=== PATIENT | female | born 1960 | race Caucasian/White ===

== ENCOUNTER 2017-01-30 12:37 | Emergency (ER) | payer OTHER ==
[~2017-01-30] VITALS: Ht 165.1 cm; Wt 60.8 kg
[~2017-01-30 12:37] MED LIST: ALAVERT10 M1 PO; AMBIEN10 M1 PO; BIO-CEF500 MG PO; BISOPROLOL5 MG PO; FLAGYL500 MG PO; FLEXERIL5 MG PO; GEODON80 MG PO; HYDROCODONE BIT1 T11 PO; IBUPROFEN600 MG PO; MOTRIN800 MG PO; NATURE'S BLEND F1 MG PO; PERCOCET 325 MG1 TA7 PO; PHENERGAN25 MG R; PREDNISONE10 MG PO; PRISTIQ50 MG PO; SIMVASTATIN20 MG PO; SIMVASTATIN5 MG PO; SYMBICORT1 AE1 INH; TORADOL10 MG PO; ULTRAM50 MG PO; VALIUM10 MG PO; VICODIN 5/500 505 MG PO; VIIBRYD40 PO; VITAMIN D31000 IU PO; VITAMIN D3400 IU PO
[2017-01-30] MEDS ORDERED: RISPERDAL3 M1 PO (12:42)
[2017-01-30 13:33] LABS: BASO # 0.1 10*3/uL (0.0-0.1); BASO % 0.8 % (0.0-1.0); EOS # 0.2 10*3/uL (0.0-0.4); EOS % 1.3 % (1.0-4.0); HEMATOCRIT 53.1 % (37.0-47.0); HEMOGLOBIN 18.4 g/dl (12.0-16.0); LYMPH % 30.7 % (27.0-41.0); MEAN CELL VOLUME 89.5 fl (81.0-99.0); MEAN CORPUSCULAR HGB CONC 34.7 g/dl (33.0-37.0); MEAN PLATELET VOLUME 11.3 fl (9.6-12.3); MONO # 0.8 10*3/uL (0.1-1.0); NEUT # 7.9 10*3/uL (2.3-7.9); NEUT % 60.9 % (47.0-73.0); PLATELET COUNT AUTOMATED 326 10*3/uL (130-400); RED BLOOD COUNT 5.93 10*6/uL (4.10-5.10); RED CELL DISTRI WIDTH 12.1 % (0-14.5)
[2017-01-30 13:50] LABS: ALBUMIN 3.8 gm/dl (3.1-4.5); ALKALINE PHOSPHATASE 107 U/L (45-117); BILIRUBIN, TOTAL 1.2 mg/dl (0.2-1.0); BUN 10 mg/dl (7-24); CARBON DIOXIDE 20 mmol/L (21-32); CHLORIDE 110 mmol/L (98-107); EST GLOM FILT AFRICAN AMERICAN > 60 ml/min; GLUCOSE 107 mg/dL (65-99); POTASSIUM 3.9 mmol/L (3.5-5.1); SGOT/AST 14 IU/L (3-35); SGPT/ALT 17 U/L (12-78); SODIUM 139 mmol/L (136-145); TOTAL PROTEIN 8.1 gm/dL (6.4-8.2)
[2017-01-30 13:52] LABS: C-REACTIVE PROTEIN < 0.29 MG/DL (0-0.3)
[2017-01-30 14:04] LABS: BILIRUBIN 1+ (NEGATIVE); BLOOD 3+ (NEGATIVE); CLARITY SL CLOUDY (CLEAR); COLOR YELLOW (YELLOW); GLUCOSE NEGATIVE (NEGATIVE); KETONE NEGATIVE (NEGATIVE); LEUKO ESTERASE 2+ (NEGATIVE); NITRITE NEGATIVE (NEGATIVE); PROTEIN 1+ (NEGATIVE); SPECIFIC GRAVITY 1.015 (1.005-1.030); UROBILINOGEN 0.2 E.U./dl (0.2-1.0)
[2017-01-30 14:22] LABS: BACTERIA TRACE; MUCOUS TRACE; RBC 31-40 rbc/hpf (0-2); URINE REFLEX COMMENT YES (NO); WBC 21-30 wbc/hpf (0-5)
[2017-01-30 18:05] VITALS: BP 150/80
== END 2017-01-30 18:04 | disposition short-term general hospital (02) ==
LOC: ED 12:37
PROVIDERS: Physician Assistant
DX: A41.9 Sepsis, unspecified organism (principal); N13.2 Hydronephrosis with renal and ureteral calculous obstruction; F17.200 Nicotine dependence, unspecified, uncomplicated; Z90.49 Acquired absence of other specified parts of digestive tract; Z98.51 Tubal ligation status; Z90.710 Acquired absence of both cervix and uterus; Z98.42 Cataract extraction status, left eye; Z79.899 Other long term (current) drug therapy; Z88.2 Allergy status to sulfonamides; Z88.5 Allergy status to narcotic agent

== ENCOUNTER → 2017-07-15 | Outpatient (CLI) | payer OTHER ==
[~2017-07-15] MED LIST changes: +RISPERDAL3 M1 PO
[2017-07-15 11:49] LABS: ALBUMIN 3.4 gm/dl (3.1-4.5); BUN 8 mg/dl (7-24); CHLORIDE 105 mmol/L (98-107); POTASSIUM 4.3 mmol/L (3.5-5.1); SODIUM 142 mmol/L (136-145)
[2017-07-15 12:44] LABS: ALKALINE PHOSPHATASE 102 U/L (45-117); BILIRUBIN, DIRECT < 0.1 mg/dL (0.0-0.2); CREATININE 1.31 mg/dL (0.55-1.02); FREE T4 0.98 ng/dl (0.76-1.46); IRON 31 ug/dL (50-170); SGOT/AST 15 IU/L (3-35); SGPT/ALT 20 U/L (12-78); TOTAL IRON BINDING CAPACITY 320 ug/dl (250-450); TOTAL PROTEIN 8.2 gm/dL (6.4-8.2); URIC ACID 5.5 mg/dL (2.6-6.0)
[2017-07-15 13:07] LABS: VITAMIN D, 25-HYDROXY 31.1 ng/mL (30-100)
[2017-07-15 13:08] LABS: PTH INTACT 32.4 pg/mL (14.0-72.0)
== END | disposition home or self-care (01) ==
LOC: LAB 10:06
PROVIDERS: Internal Medicine
DX: N20.0 Calculus of kidney (principal); E55.9 Vitamin D deficiency, unspecified; R63.4 Abnormal weight loss; R79.89 Other specified abnormal findings of blood chemistry

== ENCOUNTER → 2017-07-24 | Outpatient (CLI) | payer OTHER | END | disposition home or self-care (01) | LOC: US 03:07 | DX: E21.3 Hyperparathyroidism, unspecified (principal); R63.4 Abnormal weight loss ==

== ENCOUNTER → 2017-10-23 | Day surgery (SDC) | payer OTHER ==
[~2017-10-23] VITALS: Ht 165.1 cm; Wt 59.0 kg
[~2017-10-23] MED LIST changes: +CLONAZEPAM0.5 M2 PO; +HYDROCHLOROTH12.5 M2 PO; +Magnesium Oxid400 MG PO; +POTASSIUM CITRA5 ME1 PO; +PROBIOTIC1 EAC1 PO; +RISPERIDONE1 MG PO
--- NOTE | ~2017-10-23 | O ---
[place], [place] OPERATIVE NOTE NAME: SHUN OLIVARES UNIT #: [id number] ROOM: DOCTOR: ÁLVARO ORTIZ MD BIRTHDATE: [birth year] DOS: 10/23/2017 GASTROENDOSCOPIC REPORT HISTORY OF PRESENT ILLNESS: A 57-year-old patient who has presented with chief complaint of dyspepsia, undergoing investigation. She is fearful of having a gastric carcinoma due to the fact that multiple family members with throat and stomach carcinoma including father and uncle. She has had normal colonoscopy in 2013. PAST SURGICAL HISTORY: Lithotripsy, left knee and podiatric surgery. PAST MEDICAL HISTORY: Unremarkable. ALLERGIES: CODEINE AND SULFA. SOCIAL HISTORY: One pack, smoker and nonalcohol consumer. PROCEDURE: Today's procedure part of investigation is panendoscopy plus biopsy. PREMEDICATION: Versed and Diprivan. SCOPE: Olympus forward-viewing gastroscope Q10 video. REPORT: After putting the patient in left lateral position and application of lubricant to the scope, the scope was introduced. Thereafter, under direct visualization, I advanced through the length of esophagus without difficulty. Evidence of distal esophagitis, gastritis, was noticed a small hiatal hernia approximately 1.5 cm was noticed. Gastric pouch was entered. Gastritis noticed and duodenitis as well was identified. Air was suctioned out. Antral biopsy obtained. GI reflexion of the scope confirms small hiatal hernia. The patient tolerated procedure well. IMPRESSION: Distal esophagitis, small hiatal hernia, gastritis, and duodenitis. PLAN AND DISCUSSION: The patient advised to abstain from smoking to avoid ibuprofen as she is using on the other hand, omeprazole 20 mg 1 every day is prescribed, antireflux measures. Follow up routinely with you in office, p.r.n. visit with us in GI Clinic. I thank you very much again Ms. Yeni Biswas, for your kind referral. [place], [place] OPERATIVE NOTE NAME: SHUN OLIVARES Guevara UNIT #: [id number] ROOM: DOCTOR: ÁLVARO ORTIZ MD BIRTHDATE: [birth year] ÁLVARO ORTIZ MD CM:OPRECORD:OPERATIVE NOTE [id number] YENI ORTIZ MD 10/23/17 1328 interface
[2017-10-23 11:25] VITALS: BP 124/70
[2017-10-23 12:31] VITALS: BP 116/58
[2017-10-23 12:46] VITALS: BP 121/60
[2017-10-23 13:01] VITALS: BP 140/59
== END ==
LOC: SDC 10-21 08:00
DX: K29.90 Gastroduodenitis, unspecified, without bleeding (principal); Z98.890 Other specified postprocedural states; Z88.2 Allergy status to sulfonamides; Z88.5 Allergy status to narcotic agent; F17.210 Nicotine dependence, cigarettes, uncomplicated; K20.9 Esophagitis, unspecified; K44.9 Diaphragmatic hernia without obstruction or gangrene; Z80.0 Family history of malignant neoplasm of digestive organs; J44.9 Chronic obstructive pulmonary disease, unspecified; F41.9 Anxiety disorder, unspecified; F32.9 Major depressive disorder, single episode, unspecified; Z98.51 Tubal ligation status; Z90.49 Acquired absence of other specified parts of digestive tract; Z79.899 Other long term (current) drug therapy; Z87.442 Personal history of urinary calculi

== ENCOUNTER → 2017-11-19 | Outpatient (CLI) | payer OTHER ==
[2017-11-19 10:47] LABS: BILIRUBIN NEGATIVE (NEGATIVE); BLOOD TRACE-INTACT (NEGATIVE); CLARITY SL CLOUDY (CLEAR); COLOR YELLOW (YELLOW); GLUCOSE NEGATIVE (NEGATIVE); KETONE NEGATIVE (NEGATIVE); LEUKO ESTERASE 1+ (NEGATIVE); NITRITE NEGATIVE (NEGATIVE); PH 5.5 (5.0-9.0); UROBILINOGEN 0.2 E.U./dl (0.2-1.0)
[2017-11-19 11:03] LABS: WBC 21-30 wbc/hpf (0-5)
[2017-11-19 11:04] LABS: BACTERIA TRACE; YEAST TRACE
[2017-11-19 11:14] LABS: ALBUMIN 3.7 gm/dl (3.1-4.5); CREATININE 1.24 mg/dL (0.55-1.02); POTASSIUM 3.4 mmol/L (3.5-5.1); URIC ACID 7.2 mg/dL (2.6-6.0)
[2017-11-19 12:25] LABS: VITAMIN D, 25-HYDROXY 21.3 ng/mL (30-100)
== END | disposition home or self-care (01) ==
LOC: LAB 10:02
PROVIDERS: Internal Medicine
DX: N20.0 Calculus of kidney (principal); N18.9 Chronic kidney disease, unspecified; E55.9 Vitamin D deficiency, unspecified; E21.3 Hyperparathyroidism, unspecified

== ENCOUNTER → 2018-01-27 | Outpatient (CLI) | payer OTHER ==
[2018-01-27 12:00] LABS: ALBUMIN 3.9 gm/dl (3.1-4.5); CREATININE 1.38 mg/dL (0.55-1.02); POTASSIUM 3.4 mmol/L (3.5-5.1); URIC ACID 6.7 mg/dL (2.6-6.0)
[2018-01-27 13:21] LABS: PTH INTACT 73.8 pg/mL (14.0-72.0); VITAMIN D, 25-HYDROXY 24.4 ng/mL (30-100)
== END | disposition home or self-care (01) ==
LOC: LAB 10:23
PROVIDERS: Internal Medicine
DX: E83.52 Hypercalcemia (principal); E21.3 Hyperparathyroidism, unspecified; E55.9 Vitamin D deficiency, unspecified; N20.0 Calculus of kidney; E61.2 Magnesium deficiency

== ENCOUNTER → 2018-10-03 | Outpatient (CLI) | payer OTHER ==
[2018-10-03 14:20] LABS: ALBUMIN 3.6 gm/dl (3.1-4.5); CREATININE 1.28 mg/dL (0.55-1.02); POTASSIUM 4.3 mmol/L (3.5-5.1); URIC ACID 5.4 mg/dL (2.6-6.0)
[2018-10-03 14:39] LABS: PTH INTACT 107.9 pg/mL (18.5-88.0); VITAMIN D, 25-HYDROXY 40.6 ng/mL (30-100)
== END | disposition home or self-care (01) ==
LOC: LAB 12:58
PROVIDERS: Internal Medicine
DX: E21.3 Hyperparathyroidism, unspecified (principal); E61.2 Magnesium deficiency; E55.9 Vitamin D deficiency, unspecified; N20.0 Calculus of kidney; R79.89 Other specified abnormal findings of blood chemistry

== ENCOUNTER → 2018-10-05 | Outpatient (CLI) | payer OTHER ==
[2018-10-10 15:07] LABS: BUSHITE 1.46 ratio (0.00-3.00); CALCIUM OXALATE 2.13 ratio (0.00-6.00); CALCIUM, URINE 5.4 mg/dL (Not Estab.); CALCIUM, URINE 67.5 mg/24 hr (100.0-300.0); CITRIC ACID (CITRATE) 305 mg/24 hr (320-1240); CREATININE, URINE 937.5 mg/24 hr (800.0-1800.0); MAGNESIUM, URINE 9.2 mg/dL (Not Estab.); MONOSODIUM URATE 0.71 ratio (0.00-4.00); OSMOLALITY, URINE 300 (300-900); SODIUM, URINE 23 mmol/L (Not Estab.); SODIUM, URINE 29 (39-258); STRUVITE 0.17 ratio (0.00-1.00); URIC ACID 0.04 ratio (0.00-1.20); pH 24 HR URINE 7.5 (.)
== END | disposition home or self-care (01) ==
LOC: LAB 10:17
PROVIDERS: Internal Medicine
DX: N20.0 Calculus of kidney (principal); E21.3 Hyperparathyroidism, unspecified; E55.9 Vitamin D deficiency, unspecified; R79.89 Other specified abnormal findings of blood chemistry

== ENCOUNTER → 2019-02-09 | Outpatient (CLI) | payer OTHER ==
[2019-02-09 11:51] LABS: ALBUMIN 3.7 gm/dl (3.1-4.5); CREATININE 1.29 mg/dL (0.55-1.02); POTASSIUM 4.3 mmol/L (3.5-5.1); URIC ACID 5.8 mg/dL (2.6-6.0)
[2019-02-09 12:04] LABS: PTH INTACT 135.4 pg/mL (18.5-88.0); VITAMIN D, 25-HYDROXY 47.8 ng/mL (30-100)
== END | disposition home or self-care (01) ==
LOC: LAB 10:18
PROVIDERS: Internal Medicine
DX: N20.0 Calculus of kidney (principal); R79.89 Other specified abnormal findings of blood chemistry; E21.3 Hyperparathyroidism, unspecified; E55.9 Vitamin D deficiency, unspecified

== ENCOUNTER → 2019-03-17 | Outpatient (CLI) | payer OTHER ==
[2019-03-17 11:46] LABS: CREATININE 1.28 mg/dL (0.55-1.02); POTASSIUM 4.4 mmol/L (3.5-5.1)
== END | disposition home or self-care (01) ==
LOC: LAB 10:57
PROVIDERS: Internal Medicine
DX: E83.52 Hypercalcemia (principal)

== ENCOUNTER → 2019-07-24 | Outpatient (CLI) | payer OTHER ==
[2019-07-24 10:22] LABS: ALBUMIN 3.7 gm/dl (3.1-4.5); CREATININE 1.37 mg/dL (0.55-1.02); POTASSIUM 4.3 mmol/L (3.5-5.1)
[2019-07-24 11:15] LABS: VITAMIN D, 25-HYDROXY 24.6 ng/mL (30-100)
[2019-07-24 11:16] LABS: PTH INTACT 99.6 pg/mL (18.5-88.0)
== END | disposition home or self-care (01) ==
LOC: LAB 09:36
PROVIDERS: Internal Medicine
DX: N20.0 Calculus of kidney (principal); E21.3 Hyperparathyroidism, unspecified; E61.2 Magnesium deficiency; E55.9 Vitamin D deficiency, unspecified

== ENCOUNTER → 2019-08-07 | Outpatient (CLI) | payer OTHER | END | disposition home or self-care (01) | LOC: LAB 09:41 | DX: E83.52 Hypercalcemia (principal) ==

== ENCOUNTER 2019-10-22 15:40 | Inpatient (IN) | payer OTHER ==
[~2019-10-22] VITALS: Ht 165.1 cm; Wt 64.5 kg
[2019-10-22 15:43] VITALS: BP 176/72
[2019-10-22 16:58] VITALS: BP 144/66
[2019-10-22 18:04] VITALS: BP 130/58
--- NOTE | 2019-10-22 18:04 | NUR ---
FEELING A LITTLE BETTER AFTER GLUCAGON.
[2019-10-22 22:30] VITALS: BP 146/63
--- NOTE | 2019-10-22 22:30 | NUR ---
Time: 2229 A 59 year old FEMALE admitted to under services of DR. KAT MOISE,[facility]. Pt. arrived via bed from ER. Chief complaint: FOREIGN BODY IN THROAT. ROCAEL AMOS
--- NOTE | 2019-10-22 22:30 | NUR ---
PER ER. NOTIFIED PER ER AND PATIENT. EGD IN AM.
[2019-10-22] MEDS ORDERED: DICYCLOMINE HCL10 MG PO (22:46)
[2019-10-22] MEDS ORDERED: PANTOPRAZOLE SO40 MG PO (22:47)
[2019-10-22] MEDS ORDERED: ZIPRASIDONE HCL80 M1 PO (22:48)
[2019-10-22 22:50] VITALS: BP 146/63
--- NOTE | 2019-10-22 22:50 | NUR ---
INFORMED THAT HOME MEDS ARE VERIFIED. PATIENT IS HAS NOT HAD NIGHT TIME MEDS, AND IS REQUESTING NIGHT TIME MEDS D/T PSYCH HX. STATED OK SHEE WILL LOOK.
--- NOTE | 2019-10-22 22:55 | NUR ---
STATED SHE WILL NOT START MEDICATIONS D/T THE POSSIBLE FOREIGN BODY IN THROAT.
--- NOTE | 2019-10-23 03:04 | NUR ---
INFORMED THAT NO ORDERS HAVE BEEN PLACED FOR PATIENT, NO LABS/ADMIT TO SERVICES OR CODE STATUS. INFORMED THAT PATIENT IS GOING TO SURGERY AND NO LAB WORK HAS BEEN DONE. STATED THAT PATIENT WAS NPO SO SHE DIDN'T NEED ANYTHING.
[2019-10-23 06:49] LABS: BASO # 0.1 10*3/uL (0.0-0.1); EOS # 0.2 10*3/uL (0.0-0.4); EOS % 1.7 % (1.0-4.0); HEMATOCRIT 45.1 % (37.0-47.0); HEMOGLOBIN 14.6 g/dl (12.0-16.0); MEAN CELL VOLUME 95.6 fl (81.0-99.0); MEAN CORPUSCULAR HGB 30.9 pg (27.0-31.0); MEAN CORPUSCULAR HGB CONC 32.4 g/dl (33.0-37.0); MEAN PLATELET VOLUME 10.8 fl (9.6-12.3); MONO # 0.6 10*3/uL (0.1-1.0); MONO % 7.2 % (3.0-9.0); NEUT # 5.9 10*3/uL (2.3-7.9); NEUT % 66.9 % (47.0-73.0); PLATELET COUNT AUTOMATED 257 10*3/uL (130-400); RED BLOOD COUNT 4.72 10*6/uL (4.10-5.10); RED CELL DISTRI WIDTH 12.4 % (0-14.5); WHITE BLOOD COUNT 8.8 10*3/uL (4.8-10.8)
[2019-10-23 07:05] LABS: ALBUMIN 3.7 gm/dl (3.1-4.5); CREATININE 1.4 mg/dL (0.55-1.02); PHOSPHOROUS 3.1 mg/dL (2.5-4.9); POTASSIUM 4.1 mmol/L (3.5-5.1); TOTAL PROTEIN 7.5 gm/dL (6.4-8.2)
[2019-10-23 08:00] VITALS: BP 136/63
--- NOTE | 2019-10-23 11:00 | NUR ---
Sales Rep in to talk to patient. Patient states lives at home with her and son. There are 18 steps in the home. Physician: Dr. Givens [facility] Home health services: none Patient's level of ADLs: INDEPENDENT Patient has working utilities: yes DME: none Follow-up physician's appointment after d/c: she prefers to make her own follow up appt after discharge Does patient want to access PORTAL?: no Discharge plan discussed with patient and family who are at her bedside. She lives at home with her and son. She is independent in her ADLs and ambulation. Discussed home health care services and she denies any home needs at this time. When medically stable she will be discharged to home. Family very upset regarding surgery not scheduled until 1700. Dr. Rg notified. ILIANA NICOLAS
--- NOTE | 2019-10-23 12:04 | NUR ---
Spoke to Dr. Rg regarding patient's anxiety due to EGD and feeling as though she is having difficulty breathing. New orders received.
[2019-10-23 12:20] VITALS: BP 151/72
[2019-10-23 13:12] VITALS: BP 118/60
[2019-10-23 13:27] VITALS: BP 139/57
[2019-10-23 13:42] VITALS: BP 133/64
[2019-10-23 16:00] VITALS: BP 123/52
--- NOTE | 2019-10-23 17:02 | NUR ---
Discharge instructions reviewed with patient/family. Patient receptive and verbalizes understanding. Follow-up care arranged. Written instructions given to patient/family. MICHAEL ZALDIVAR
== END 2019-10-23 17:03 | disposition home or self-care (01) | DRG 254 ==
LOC: ED 15:40 → EDHOLD 17:42 → 4E 17:42
PROVIDERS: ADMIT Internal Medicine
PROC: 0DB68ZX Excision of Stomach, Via Natural or Artificial Opening Endoscopic, Diagnostic (ICD-10-PCS; principal; 2019-10-23)
DX: T18.108A Unspecified foreign body in esophagus causing other injury, initial encounter (principal); F41.9 Anxiety disorder, unspecified; K21.0 Gastro-esophageal reflux disease with esophagitis; N20.0 Calculus of kidney; F32.9 Major depressive disorder, single episode, unspecified; X58.XXXA Exposure to other specified factors, initial encounter; Z88.5 Allergy status to narcotic agent; Z88.2 Allergy status to sulfonamides; N17.9 Acute kidney failure, unspecified

== ENCOUNTER → 2019-11-09 | Outpatient (CLI) | payer OTHER ==
[~2019-11-09] MED LIST changes: +DICYCLOMINE HCL10 MG PO; +PANTOPRAZOLE SO40 MG PO; +ZIPRASIDONE HCL80 M1 PO
[2019-11-09 11:18] LABS: ALBUMIN 3.9 gm/dl (3.1-4.5); CREATININE 1.36 mg/dL (0.55-1.02); POTASSIUM 4.6 mmol/L (3.5-5.1)
[2019-11-09 15:20] LABS: PTH INTACT 153.3 pg/mL (18.5-88.0); VITAMIN D, 25-HYDROXY 33.3 ng/mL (30-100)
== END | disposition home or self-care (01) ==
LOC: LAB 10:26
PROVIDERS: Internal Medicine
DX: E21.3 Hyperparathyroidism, unspecified (principal); E61.2 Magnesium deficiency; E55.9 Vitamin D deficiency, unspecified

== ENCOUNTER → 2019-11-11 | Outpatient (CLI) | payer OTHER | LOC: LAB 07:48 | DX: E83.52 Hypercalcemia (principal) ==

== ENCOUNTER → 2020-03-07 | Outpatient (CLI) | payer OTHER ==
[~2020-03-07] MED LIST changes: +NORCO 5-325 TA1 EACH PO
== END | disposition home or self-care (01) ==
LOC: RAD 11:19 → LAB 11:19
DX: K52.9 Noninfective gastroenteritis and colitis, unspecified (principal); N20.0 Calculus of kidney; Z90.49 Acquired absence of other specified parts of digestive tract

== ENCOUNTER → 2020-03-08 | Outpatient (CLI) | payer OTHER ==
[2020-03-11 15:03] LABS: DEOXYCHOLIC ACIDS 0.5 umol/L (.); URSODEOXYCHOLIC ACIDS 0.5 umol/L (.)
== END | disposition home or self-care (01) ==
LOC: LAB 09:36
PROVIDERS: Nurse Practitioner Family
DX: K52.9 Noninfective gastroenteritis and colitis, unspecified (principal)

== ENCOUNTER → 2020-03-09 | Outpatient (CLI) | payer OTHER ==
[2020-03-11 18:03] LABS: FATS, NEUTRAL Normal (.); FATS, TOTAL Normal (.)
== END | disposition home or self-care (01) ==
LOC: LAB 08:13
PROVIDERS: Nurse Practitioner Family
DX: K52.9 Noninfective gastroenteritis and colitis, unspecified (principal)

== ENCOUNTER 2020-03-29 15:17 | Emergency (ER) | payer OTHER ==
[~2020-03-29] VITALS: Ht 165.1 cm; Wt 63.5 kg
[~2020-03-29 15:17] MED LIST changes: -NORCO 5-325 TA1 EACH PO
[2020-03-29 15:29] VITALS: BP 138/60
[2020-03-29] MEDS ORDERED: NORCO 5-325 TA1 EACH PO (18:43)
== END 2020-03-29 19:15 | disposition home or self-care (01) ==
LOC: ED 15:17
DX: S82.402A Unspecified fracture of shaft of left fibula, initial encounter for closed fracture (principal); F41.9 Anxiety disorder, unspecified; F32.9 Major depressive disorder, single episode, unspecified; J44.9 Chronic obstructive pulmonary disease, unspecified; Z88.2 Allergy status to sulfonamides; Z88.5 Allergy status to narcotic agent; Z79.899 Other long term (current) drug therapy; X58.XXXA Exposure to other specified factors, initial encounter; Y93.89 Activity, other specified; Y92.89 Other specified places as the place of occurrence of the external cause; Y99.8 Other external cause status; Z87.891 Personal history of nicotine dependence

== ENCOUNTER → 2020-06-07 | Outpatient (CLI) | payer OTHER ==
[~2020-06-07] MED LIST changes: +NORCO 5-325 TA1 EACH PO
[2020-06-07 12:33] LABS: ALBUMIN 3.3 gm/dl (3.1-4.5); CREATININE 1.27 mg/dL (0.55-1.02); POTASSIUM 4.1 mmol/L (3.5-5.1)
[2020-06-07 13:10] LABS: PTH INTACT 83.8 pg/mL (18.5-88.0); VITAMIN D, 25-HYDROXY 53.3 ng/mL (30-100)
== END | disposition home or self-care (01) ==
LOC: LAB 10:55
PROVIDERS: ATTEND Internal Medicine
DX: E21.3 Hyperparathyroidism, unspecified (principal); E55.9 Vitamin D deficiency, unspecified

== ENCOUNTER → 2020-06-09 | Outpatient (CLI) | payer OTHER | END | disposition home or self-care (01) | LOC: LAB 09:33 | PROVIDERS: ATTEND Internal Medicine | DX: E55.9 Vitamin D deficiency, unspecified (principal); E61.2 Magnesium deficiency; E21.3 Hyperparathyroidism, unspecified ==

== ENCOUNTER 2020-07-27 14:37 | Observation (INO) | payer OTHER ==
[~2020-07-27] VITALS: Ht 165.1 cm; Wt 58.7 kg
[2020-07-27 14:41] VITALS: BP 140/69
[2020-07-27 15:10] LABS: BASO # 0.1 10*3/uL (0.0-0.1); BASO % 1.1 % (0.0-1.0); EOS # 0.2 10*3/uL (0.0-0.4); EOS % 2.5 % (1.0-4.0); HEMATOCRIT 46.8 % (37.0-47.0); LYMPH # 3.3 10*3/uL (1.3-4.4); MEAN CELL VOLUME 92.9 fl (81.0-99.0); MEAN CORPUSCULAR HGB 30.6 pg (27.0-31.0); MEAN CORPUSCULAR HGB CONC 32.9 g/dl (33.0-37.0); MEAN PLATELET VOLUME 10.6 fl (9.6-12.3); MONO # 0.4 10*3/uL (0.1-1.0); MONO % 4.5 % (3.0-9.0); NEUT # 5.3 10*3/uL (2.3-7.9); NEUT % 56.6 % (47.0-73.0); PLATELET COUNT AUTOMATED 330 10*3/uL (130-400); RED BLOOD COUNT 5.04 10*6/uL (4.10-5.10); RED CELL DISTRI WIDTH 12.2 % (0-14.5); WHITE BLOOD COUNT 9.3 10*3/uL (4.8-10.8)
[2020-07-27 15:24] LABS: ACT PARTIAL THROMBO TIME 29.7 SECONDS (20.0-32.1); INTERNATIONAL NORM RATIO 0.9 (2.0-3.5)
[2020-07-27 15:27] LABS: ALBUMIN 3.8 gm/dl (3.1-4.5); ALKALINE PHOSPHATASE 82 U/L (45-117); BUN 5 mg/dl (7-24); CHLORIDE 103 mmol/L (98-107); CREATININE 1.25 mg/dL (0.55-1.02); SGOT/AST 11 IU/L (3-35); SGPT/ALT 13 U/L (12-78); SODIUM 137 mmol/L (136-145); TOTAL PROTEIN 7.6 gm/dL (6.4-8.2)
[2020-07-27 15:33] LABS: TROPONIN I < 0.015 ng/ml (<0.045)
--- NOTE | 2020-07-27 16:05 | NUR ---
PT REQUESTING SOMETHING FOR PAIN CANNOT TAKE ASA IBUPHROPHEN PER PT
[2020-07-27 16:37] VITALS: BP 126/68
--- NOTE | 2020-07-27 17:08 | NUR ---
NIGHT BAG TAKEN TO PT FROM .
[2020-07-27 17:17] VITALS: BP 132/51
[2020-07-27] MEDS ORDERED: ALENDRONATE SOD35 M1 PO (18:56)
[2020-07-27] MEDS ORDERED: HYDR25T PO (18:57)
[2020-07-27] MEDS ORDERED: CARAFATE1 GM PO (18:58)
[2020-07-27] MEDS ORDERED: VITAMIN D350 MCG PO (19:01)
--- NOTE | 2020-07-27 19:02 | NUR ---
PT REPORT FROM PRIOR SHIFT RN. PT REQUESTING SOMETHING TO EAT. BOX LUNCH GIVEN.
[2020-07-27] MEDS ORDERED: [UNRECOGNIZED DRUG - OTHER] PO (19:04)
[2020-07-27 19:35] VITALS: BP 132/51
--- NOTE | 2020-07-27 20:23 | NUR ---
REPEAT EKG COMPLETED
[2020-07-27 20:50] VITALS: BP 150/75
--- NOTE | 2020-07-27 20:50 | NUR ---
A 60, admitted to 5E, under the services of ALVARADO Jang MD with a diagnosis of CHEST PAIN. Chief complaint is CHEST PAIN. Patient arrived via ambulatory from ER. Monitor applied. Initial assessment completed. Vital signs taken and recorded. ALVARADO JANG MD notified of admission to the unit. Orders received. See assessment for past medical history, medications and allergies. Patient and/or family oriented to unit. visitation policy reviewed. Clothing/patient valuable form completed. REED ERWIN
--- NOTE | 2020-07-27 21:14 | NUR ---
DR. ROUSSEAU NOTIFIED THAT PATIENT'S HOME MED REQ IS UP TO DATE.
[2020-07-28] VITALS: BP 111/51
--- NOTE | 2020-07-28 04:49 | NUR ---
PATIENT MEDICATED WITH TYLENOL FOR COMPLAINTS OF A HEADACHE FROM NITRO IN THE ER. WILL MONITOR FOR EFFECTIVENESS. CALL LIGHT IN REACH.
--- NOTE | 2020-07-28 05:45 | NUR ---
TYLENOL EFFECTIVE AT THIS TIME. PATIENT IN BED WATCHING TV. STATES SHE IS FEELING A LITTLE BETTER. CALL LIGHT IN REACH.
[2020-07-28 06:46] LABS: BASO # 0.1 10*3/uL (0.0-0.1); BASO % 1.1 % (0.0-1.0); EOS # 0.3 10*3/uL (0.0-0.4); EOS % 4.2 % (1.0-4.0); LYMPH # 3.5 10*3/uL (1.3-4.4); LYMPH % 45.1 % (27.0-41.0); MEAN CELL VOLUME 95.4 fl (81.0-99.0); MEAN CORPUSCULAR HGB 30.6 pg (27.0-31.0); MEAN PLATELET VOLUME 11.2 fl (9.6-12.3); MONO # 0.5 10*3/uL (0.1-1.0); MONO % 6.6 % (3.0-9.0); NEUT # 3.4 10*3/uL (2.3-7.9); NEUT % 42.9 % (47.0-73.0); PLATELET COUNT AUTOMATED 286 10*3/uL (130-400); RED BLOOD COUNT 4.61 10*6/uL (4.10-5.10); RED CELL DISTRI WIDTH 12.4 % (0-14.5); WHITE BLOOD COUNT 7.8 10*3/uL (4.8-10.8)
[2020-07-28 07:12] LABS: ACT PARTIAL THROMBO TIME 28.4 SECONDS (20.0-32.1)
[2020-07-28 07:14] LABS: ALBUMIN 3.1 gm/dl (3.1-4.5); BUN 7 mg/dl (7-24); CHLORIDE 108 mmol/L (98-107); CHOLESTEROL 203 mg/dL (<200); CREATININE 1.11 mg/dL (0.55-1.02); HDL CHOLESTEROL 50 mg/dl (40-60); POTASSIUM 3.7 mmol/L (3.5-5.1); SGOT/AST 15 IU/L (3-35); SGPT/ALT 11 U/L (12-78); SODIUM 142 mmol/L (136-145); TOTAL PROTEIN 6.5 gm/dL (6.4-8.2)
[2020-07-28 07:20] LABS: ALKALINE PHOSPHATASE 61 U/L (45-117); FREE T4 1.11 ng/dl (0.76-1.46); LDL CHOLESTEROL 127 mg/dL (9-159); TRIGLYCERIDES 130 mg/dl (<150); VLDL CHOLESTEROL 26 mg/dL (6-40)
[2020-07-28 08:00] VITALS: BP 107/81
[2020-07-28 08:32] LABS: VITAMIN D, 25-HYDROXY 54.8 ng/mL (30-100)
--- NOTE | 2020-07-28 09:00 | NUR ---
Bending Frame Operator in to talk to patient. Patient states lives at home with her and autistic son. There are 0 steps in the home. There are 18 steps outside. Physician: Dr. Givens [facility] Home health services: none Patient's level of ADLs: INDEPENDENT Patient has working utilities: yes DME: none Follow-up physician's appointment after d/c: she prefers to make her own follow up appt after discharge Does patient want to access PORTAL?: no Discharge plan discussed with patient. She lives at home with her and autistic son. She is independent in her ADLs and ambulation. Discussed home health care services and she declines. CM will continue to follow for any discharge planning needs. When medically stable she will be discharged to home. She states she will drive herself home as she drove herself here. ILIANA NICOLAS
[2020-07-28 12:00] VITALS: BP 129/62
--- NOTE | 2020-07-28 13:04 | NUR ---
MEDICATED WITH VICODIN FOR COMPLAINTS OF PAIN IN RIGHT SIDED OF CHEST AND THROUGH BACK, RATES PAIN A 7 ON A PAIN SCALE OF 1-10
--- NOTE | 2020-07-28 13:45 | NUR ---
VOICES THAT NORCO WAS EFFECTVE FOR PAIN
[2020-07-28 16:00] VITALS: BP 110/54
[2020-07-28 20:00] VITALS: BP 119/53
[2020-07-29] VITALS: BP 106/43
--- NOTE | 2020-07-29 05:22 | NUR ---
PATIENT MEDICATED WITH NORCO FOR COMPLAINTS OF RIGHT SIDED PAIN. WILL MONITOR FOR EFFECTIVENESS. CALL LIGHT IN REACH.
--- NOTE | 2020-07-29 05:42 | NUR ---
PATIENT MEDICATED WITH NORCO FOR COMPLAINTS OF PAIN. WILL MONITOR FOR EFFECTIVENESS. CALL LIGHT IN REACH.
--- NOTE | 2020-07-29 06:03 | NUR ---
NORCO EFFECTIVE. PATIENT FEELING BETTER AT THIS TIME.
[2020-07-29 08:00] VITALS: BP 110/52
--- NOTE | 2020-07-29 08:30 | NUR ---
CM in to see patient. No new needs or request at this time. Discussed home health care services and she declines. CM will continue to follow for any discharge planning needs. When medically stable she will be discharged to home. Informed patient HUANG notified security that her car was in the ED parking lot as she requested.
[2020-07-29 12:00] VITALS: BP 149/57
[2020-07-29] MEDS ORDERED: ZITHROMAX500 MG PO (12:55)
[2020-07-29] MEDS ORDERED: PREDNISONE10 MG PO (12:55)
--- NOTE | 2020-07-29 13:19 | NUR ---
DC TO HOME PT VERBALIZED GOOD UNDERSTANDING OF HOME MEDS
== END 2020-07-29 13:19 | disposition home or self-care (01) ==
LOC: ED 14:37 → EDHOLD 17:01 → 5E 19:52
PROVIDERS: Emergency Medicine; Internal Medicine; ADMIT Internal Medicine; ATTEND Internal Medicine
DX: R07.89 Other chest pain (principal); J44.1 Chronic obstructive pulmonary disease with (acute) exacerbation; N17.9 Acute kidney failure, unspecified; E87.6 Hypokalemia; F41.9 Anxiety disorder, unspecified; F32.9 Major depressive disorder, single episode, unspecified; R05 Cough; K21.9 Gastro-esophageal reflux disease without esophagitis; E21.0 Primary hyperparathyroidism; F17.219 Nicotine dependence, cigarettes, with unspecified nicotine-induced disorders; R73.9 Hyperglycemia, unspecified

== ENCOUNTER 2020-08-08 11:17 | Emergency (ER) | payer OTHER ==
[~2020-08-08] VITALS: Ht 165.1 cm; Wt 59.0 kg
[~2020-08-08 11:17] MED LIST changes: +ALENDRONATE SOD35 M1 PO; +CARAFATE1 GM PO; +HYDR25T PO; +VITAMIN D350 MCG PO; +ZITHROMAX500 MG PO; +[UNRECOGNIZED DRUG - OTHER] PO
[2020-08-08 11:30] VITALS: BP 114/57
[2020-08-08] MEDS ORDERED: NORCO 5-325 TA1 EACH PO (13:41)
== END 2020-08-08 13:46 | disposition home or self-care (01) ==
LOC: ED 11:17
DX: S82.831A Other fracture of upper and lower end of right fibula, initial encounter for closed fracture (principal); Z88.2 Allergy status to sulfonamides; Z88.6 Allergy status to analgesic agent; Z79.899 Other long term (current) drug therapy; Z87.891 Personal history of nicotine dependence; W18.39XA Other fall on same level, initial encounter; Y93.89 Activity, other specified; Y92.89 Other specified places as the place of occurrence of the external cause; Y99.8 Other external cause status

== ENCOUNTER → 2020-10-03 | Outpatient (CLI) | payer OTHER ==
[2020-10-03 13:42] LABS: ALBUMIN 3.5 gm/dl (3.1-4.5); CREATININE 1.15 mg/dL (0.55-1.02); POTASSIUM 4.1 mmol/L (3.5-5.1)
[2020-10-03 14:26] LABS: PTH INTACT 74.6 pg/mL (18.5-88.0); VITAMIN D, 25-HYDROXY 52.6 ng/mL (30-100)
== END | disposition home or self-care (01) ==
LOC: LAB 12:59
PROVIDERS: ATTEND Internal Medicine
DX: E21.3 Hyperparathyroidism, unspecified (principal); E55.9 Vitamin D deficiency, unspecified; E61.2 Magnesium deficiency

== ENCOUNTER → 2020-10-05 | Outpatient (CLI) | payer OTHER | END | disposition home or self-care (01) | LOC: LAB 11:49 | PROVIDERS: ATTEND Internal Medicine | DX: E21.3 Hyperparathyroidism, unspecified (principal); E55.9 Vitamin D deficiency, unspecified; E61.2 Magnesium deficiency ==

== ENCOUNTER → 2020-10-20 | Outpatient (CLI) | payer OTHER | END | disposition home or self-care (01) | LOC: RAD 13:07 | PROVIDERS: ATTEND Internal Medicine | DX: M85.89 Other specified disorders of bone density and structure, multiple sites (principal) ==

== ENCOUNTER → 2020-12-28 | Outpatient (CLI) | payer OTHER ==
[2020-12-29 18:07] LABS: FATS, TOTAL Increased (.)
[2020-12-30 08:30] LABS: FATS, NEUTRAL Normal (.)
== END | disposition home or self-care (01) ==
LOC: LAB 16:12
PROVIDERS: Nurse Practitioner Family; ATTEND Physical Medicine & Rehabilitation
DX: K58.0 Irritable bowel syndrome with diarrhea (principal)

== ENCOUNTER → 2021-01-25 | Outpatient (CLI) | payer OTHER ==
[2021-01-25 15:38] LABS: ALBUMIN 3.4 gm/dl (3.1-4.5); CREATININE 1.18 mg/dL (0.55-1.02); POTASSIUM 3.6 mmol/L (3.5-5.1)
[2021-01-25 20:14] LABS: PTH INTACT 82.4 pg/mL (18.5-88.0); VITAMIN D, 25-HYDROXY 63.5 ng/mL (30-100)
== END | disposition home or self-care (01) ==
LOC: LAB 14:52
PROVIDERS: ATTEND Internal Medicine
DX: E55.9 Vitamin D deficiency, unspecified (principal); E21.3 Hyperparathyroidism, unspecified; E83.52 Hypercalcemia; E61.2 Magnesium deficiency

== ENCOUNTER → 2021-01-27 | Outpatient (CLI) | payer OTHER | END | disposition home or self-care (01) | LOC: LAB 12:55 | PROVIDERS: ATTEND Nurse Practitioner Family | DX: A07.1 Giardiasis [lambliasis] (principal) ==

== ENCOUNTER → 2021-04-24 | Outpatient (CLI) | payer OTHER ==
[2021-04-24 09:42] LABS: ALBUMIN 3.2 gm/dl (3.1-4.5); BUN 8 mg/dl (7-24); CHLORIDE 110 mmol/L (98-107); POTASSIUM 3.6 mmol/L (3.5-5.1); SODIUM 140 mmol/L (136-145)
[2021-04-24 09:54] LABS: CREATININE 0.99 mg/dL (0.55-1.02); FREE T4 0.98 ng/dl (0.76-1.46)
[2021-04-24 09:59] LABS: PTH INTACT 89.6 pg/mL (18.5-88.0); VITAMIN D, 25-HYDROXY 57.8 ng/mL (30-100)
== END | disposition home or self-care (01) ==
LOC: LAB 08:50
PROVIDERS: ATTEND Internal Medicine
DX: E55.9 Vitamin D deficiency, unspecified (principal); E21.3 Hyperparathyroidism, unspecified; E61.2 Magnesium deficiency; R73.9 Hyperglycemia, unspecified

== ENCOUNTER → 2021-05-07 | Outpatient (CLI) | payer OTHER | END | disposition home or self-care (01) | LOC: LAB | PROVIDERS: ATTEND Internal Medicine | DX: E21.3 Hyperparathyroidism, unspecified (principal) ==

== ENCOUNTER → 2021-05-09 | Outpatient (CLI) | payer OTHER ==
[2021-05-09 10:58] LABS: ALBUMIN 3.4 gm/dl (3.1-4.5)
== END | disposition home or self-care (01) ==
LOC: LAB 10:19
PROVIDERS: ATTEND Internal Medicine
DX: M81.0 Age-related osteoporosis without current pathological fracture (principal)

== ENCOUNTER → 2021-06-06 | Outpatient (CLI) | payer OTHER ==
[2021-06-06 15:41] LABS: HEMATOCRIT 42.4 % (37.0-47.0); MEAN CORPUSCULAR HGB 31.5 pg (27.0-31.0); MEAN CORPUSCULAR HGB CONC 33.5 g/dl (33.0-37.0); MEAN PLATELET VOLUME 11.8 fl (9.6-12.3); RED BLOOD COUNT 4.51 10*6/uL (4.10-5.10); WHITE BLOOD COUNT 8.8 10*3/uL (4.8-10.8)
[2021-06-06 16:05] LABS: BUN 7 mg/dl (7-24); CHLORIDE 109 mmol/L (98-107); CREATININE 0.83 mg/dL (0.55-1.02); SGOT/AST 14 IU/L (3-35); SGPT/ALT 20 U/L (12-78); SODIUM 140 mmol/L (136-145); TOTAL PROTEIN 6.3 gm/dL (6.4-8.2)
[2021-06-06 16:12] LABS: ALKALINE PHOSPHATASE 164 U/L (45-117)
[2021-06-07 17:06] LABS: ATYPICAL PANCA <1:20 titer (Neg:<1:20); CYTOPLASMIC (C-ANCA) <1:20 titer (Neg:<1:20)
[2021-06-08 15:07] LABS: ACCA 106 units (0-90); ALCA 95 units (0-60); AMCA 656 units (0-100); GASCA 92 units (0-50)
[2021-06-08 16:08] LABS: ATYPICAL PANCA Negative (Negative)
[2021-06-09 17:07] LABS: FATS, NEUTRAL Normal (.); FATS, TOTAL Normal (.)
== END | disposition home or self-care (01) ==
LOC: LAB 15:03
PROVIDERS: ATTEND Nurse Practitioner Family
DX: K52.9 Noninfective gastroenteritis and colitis, unspecified (principal)

== ENCOUNTER → 2021-06-20 | Outpatient (CLI) | payer OTHER ==
[2021-06-20 08:54] VITALS: BP 103/65
== END | disposition home or self-care (01) ==
LOC: INJECTION 08:37
PROVIDERS: ATTEND Internal Medicine
DX: M81.0 Age-related osteoporosis without current pathological fracture (principal); F41.9 Anxiety disorder, unspecified; F32.9 Major depressive disorder, single episode, unspecified; J44.9 Chronic obstructive pulmonary disease, unspecified; F43.10 Post-traumatic stress disorder, unspecified; F17.200 Nicotine dependence, unspecified, uncomplicated; Z90.49 Acquired absence of other specified parts of digestive tract

== ENCOUNTER → 2021-06-22 | Outpatient (CLI) | payer OTHER ==
[2021-06-22 09:53] LABS: BASO # 0.1 10*3/uL (0.0-0.1); BASO % 0.6 % (0.0-1.0); EOS # 0.1 10*3/uL (0.0-0.4); LYMPH # 2.6 10*3/uL (1.3-4.4); LYMPH % 25.1 % (27.0-41.0); MEAN CELL VOLUME 94.9 fl (81.0-99.0); MEAN CORPUSCULAR HGB 31.2 pg (27.0-31.0); MEAN CORPUSCULAR HGB CONC 32.9 g/dl (33.0-37.0); MEAN PLATELET VOLUME 10.9 fl (9.6-12.3); MONO # 0.6 10*3/uL (0.1-1.0); MONO % 6.2 % (3.0-9.0); NEUT # 6.9 10*3/uL (2.3-7.9); NEUT % 66.7 % (47.0-73.0); PLATELET COUNT AUTOMATED 376 10*3/uL (130-400); RED BLOOD COUNT 5.06 10*6/uL (4.10-5.10); RED CELL DISTRI WIDTH 12.7 % (0-14.5); WHITE BLOOD COUNT 10.3 10*3/uL (4.8-10.8)
[2021-06-26 16:07] LABS: ATYPICAL PANCA Negative (Negative)
[2021-06-27 15:07] LABS: ALCA 156 units (0-60); AMCA 529 units (0-100); GASCA 81 units (0-50)
[2021-06-28 16:09] LABS: ACCA 113 units (0-90)
== END | disposition home or self-care (01) ==
LOC: LAB 09:29
PROVIDERS: ATTEND Internal Medicine Gastroenterology
DX: R19.7 Diarrhea, unspecified (principal)

== ENCOUNTER → 2021-07-07 | Outpatient (CLI) | payer OTHER | END | disposition home or self-care (01) | LOC: LAB 11:04 | PROVIDERS: ATTEND Otolaryngology | DX: D35.1 Benign neoplasm of parathyroid gland (principal) ==

== ENCOUNTER 2021-08-06 15:59 | Emergency (ER) | payer OTHER ==
[~2021-08-06] VITALS: Wt 47.6 kg
[2021-08-06 16:05] VITALS: BP 114/72
== END 2021-08-06 18:30 | disposition home or self-care (01) ==
LOC: ED 15:59
DX: T85.598A Other mechanical complication of other gastrointestinal prosthetic devices, implants and grafts, initial encounter (principal); K21.9 Gastro-esophageal reflux disease without esophagitis; J44.9 Chronic obstructive pulmonary disease, unspecified; Z79.899 Other long term (current) drug therapy; Z88.2 Allergy status to sulfonamides; Z88.6 Allergy status to analgesic agent; Y92.89 Other specified places as the place of occurrence of the external cause

== ENCOUNTER 2021-08-11 19:14 | Emergency (ER) | payer OTHER ==
[~2021-08-11] VITALS: Ht 162.5 cm; Wt 47.6 kg
[2021-08-11 19:37] VITALS: BP 125/83
== END 2021-08-11 22:45 | disposition home or self-care (01) ==
LOC: ED 19:14
DX: T85.598A Other mechanical complication of other gastrointestinal prosthetic devices, implants and grafts, initial encounter (principal); Y92.89 Other specified places as the place of occurrence of the external cause

== ENCOUNTER 2021-08-17 13:46 | Emergency (ER) | payer OTHER ==
[~2021-08-17] VITALS: Ht 162.6 cm; Wt 47.6 kg
[2021-08-17 13:54] VITALS: BP 123/88
== END 2021-08-17 16:32 | disposition left against medical advice (07) ==
LOC: ED 13:46
DX: Z46.59 Encounter for fitting and adjustment of other gastrointestinal appliance and device (principal); Z53.21 Procedure and treatment not carried out due to patient leaving prior to being seen by health care provider

== ENCOUNTER 2022-09-17 01:46 | Emergency (ER) | payer OTHER ==
[~2022-09-17] VITALS: Ht 162.5 cm; Wt 47.6 kg
[2022-09-17] MEDS ORDERED: LAMOTRIGINE25 M1 PO (01:52)
[2022-09-17 04:14] LABS: BASO # 0.1 10*3/uL (0.0-0.1); BASO % 0.3 % (0.0-1.0); EOS % 0.1 % (1.0-4.0); HEMATOCRIT 49.2 % (37.0-47.0); LYMPH # 2.5 10*3/uL (1.3-4.4); LYMPH % 16.4 % (27.0-41.0); MEAN CELL VOLUME 92.8 fl (81.0-99.0); MEAN CORPUSCULAR HGB 32.1 pg (27.0-31.0); MEAN CORPUSCULAR HGB CONC 34.6 g/dl (33.0-37.0); MEAN PLATELET VOLUME 11.1 fl (9.6-12.3); MONO # 0.9 10*3/uL (0.1-1.0); MONO % 5.8 % (3.0-9.0); NEUT # 11.5 10*3/uL (2.3-7.9); PLATELET COUNT AUTOMATED 306 10*3/uL (130-400); RED CELL DISTRI WIDTH 12.5 % (0-14.5); WHITE BLOOD COUNT 14.9 10*3/uL (4.8-10.8)
[2022-09-17 04:30] LABS: CREATININE 1.32 mg/dL (0.55-1.02); POTASSIUM 3.5 mmol/L (3.4-5.1); TOTAL PROTEIN 7.3 gm/dL (6.0-8.0)
[2022-09-17 06:58] LABS: LIPASE 60 U/L (12-53)
[2022-09-17 07:09] LABS: INTERNATIONAL NORM RATIO 1.1 (2.0-3.5)
[2022-09-17 07:11] VITALS: BP 125/64
[2022-09-20] MEDS ORDERED: MIRTAZAPINE30 M2 PO (21:09)
== END 2022-09-17 07:28 | disposition short-term general hospital (02) ==
LOC: ED 01:46
PROVIDERS: Emergency Medicine
DX: I21.3 ST elevation (STEMI) myocardial infarction of unspecified site (principal); N17.9 Acute kidney failure, unspecified; Z98.49 Cataract extraction status, unspecified eye; D72.829 Elevated white blood cell count, unspecified; Z90.710 Acquired absence of both cervix and uterus; Z90.49 Acquired absence of other specified parts of digestive tract; Z98.51 Tubal ligation status; Z87.891 Personal history of nicotine dependence; Z88.2 Allergy status to sulfonamides; Z88.5 Allergy status to narcotic agent

== ENCOUNTER → 2022-12-07 | Outpatient (CLI) | payer OTHER ==
[~2022-12-07] MED LIST changes: +ERYTHROMYCIN250 MG PO; +LAMOTRIGINE25 M1 PO; +MIRTAZAPINE30 M2 PO; +OMEPRAZOLE40 MG PO
== END | disposition home or self-care (01) ==
LOC: US 11-21 14:00
PROVIDERS: ATTEND Urology
DX: N20.0 Calculus of kidney (principal); N13.30 Unspecified hydronephrosis; N28.1 Cyst of kidney, acquired

== ENCOUNTER → 2023-02-18 | Outpatient (CLI) | payer OTHER ==
[~2023-02-18] MED LIST changes: +GEODON80 M1 PO; +PROTONIX40 MG PO; +REMERON30 M1 PO
== END | disposition home or self-care (01) ==
LOC: MAMMO 02-11 09:30 → RAD 09:04 → MAMMO 10:30
PROVIDERS: ATTEND Internal Medicine
DX: Z12.31 Encounter for screening mammogram for malignant neoplasm of breast (principal); N95.1 Menopausal and female climacteric states

== ENCOUNTER 2023-12-30 10:32 | Inpatient (IN) | payer OTHER ==
[~2023-12-30] VITALS: Ht 162.5 cm; Wt 51.3 kg
[~2023-12-30 10:32] MED LIST changes: +ALENDRONATE SOD70 M1 PO; +Carafate1 GM PO; +DIAZEPAM5 MG PO; +LAMICTAL25 MG PO; +LISINOPRIL10 M1 PO; +OYSTER SHELL 51 EAC5 PO; +ZOLPIDEM TART5 MG PO
[2023-12-30 10:38] VITALS: BP 118/74
[2023-12-30] MEDS ORDERED: SODIUM CHLORIDE 0.9% 1,000 ML IV ONE (10:50)
[2023-12-30] MEDS ORDERED: MORPHINE Sulfate 2 MG/ML SYR IV ONE (10:50)
[2023-12-30] MEDS ORDERED: Ondansetron Hydrochloride 4 MG/2 ML VIAL IV ONE (10:50)
[2023-12-30] MEDS ORDERED: IOHEXOL 300 MG/ML 100 ML VIAL IV ONE (11:05)
[2023-12-30 11:16] LABS: BASO # 0.1 10*3/uL (0.0-0.1); EOS # 0.1 10*3/uL (0.0-0.4); EOS % 0.6 % (1.0-4.0); HEMATOCRIT 53.2 % (37.0-47.0); LYMPH # 2.1 10*3/uL (1.3-4.4); LYMPH % 14.2 % (27.0-41.0); MEAN CELL VOLUME 93.5 fl (81.0-99.0); MEAN CORPUSCULAR HGB 29.9 pg (27.0-31.0); MEAN PLATELET VOLUME 11.3 fl (9.6-12.3); MONO # 0.9 10*3/uL (0.1-1.0); MONO % 6.1 % (3.0-9.0); NEUT # 11.4 10*3/uL (2.3-7.9); NEUT % 77.4 % (47.0-73.0); PLATELET COUNT AUTOMATED 512 10*3/uL (130-400); RED BLOOD COUNT 5.69 10*6/uL (4.10-5.10); RED CELL DISTRI WIDTH 12.6 % (0-14.5); WHITE BLOOD COUNT 14.7 10*3/uL (4.8-10.8)
[2023-12-30 11:38] LABS: ALKALINE PHOSPHATASE 76 U/L (46-116); BUN 12 mg/dl (9-23); CHLORIDE 101 mmol/L (98-107); LIPASE 94 U/L (12-53); POTASSIUM 4.7 mmol/L (3.4-5.1); SGPT/ALT 15 U/L (5-49); TOTAL PROTEIN 8.8 gm/dL (6.0-8.0)
[2023-12-30 13:08] VITALS: BP 147/77
[2023-12-30] MEDS ORDERED: FAMOTIDINE 50 ML IV ONE (13:25)
[2023-12-30] MEDS ORDERED: Metoclopramide Hydrochloride 10 MG/2 ML AMP IV ONE (13:25)
[2023-12-30 14:45] VITALS: BP 129/79
[2023-12-30] MEDS ORDERED: Technetium Tc 99M Sestamibi 1 KIT KIT IV SCH (16:35)
[2023-12-30] MEDS ORDERED: Technetium Tc 99M Sulfurcoll 1 KIT KIT SCH (16:35)
[2023-12-30] MEDS ORDERED: SODIUM CHLORIDE 0.9% 1,000 ML IV SCH (17:10)
[2023-12-30 20:05] VITALS: BP 129/59
[2023-12-30 21:59] LABS: BILIRUBIN Negative (Negative); BLOOD Negative (Negative); CLARITY Clear (Clear); COLOR Yellow (Yellow); GLUCOSE Negative (Negative); KETONE Negative (Negative); LEUKO ESTERASE Trace (Negative); NITRITE Negative (Negative); SPECIFIC GRAVITY <= 1.005 (1.001-1.030); UROBILINOGEN 0.2 E.U./dl (0.0-1.0)
[2023-12-30 22:11] LABS: EPITHELIAL CELLS 16-20
[2023-12-30 22:12] LABS: BACTERIA TRACE
[2023-12-30] MEDS ORDERED: MORPHINE Sulfate 2 MG/ML SYR IV PRN (23:30)
[2023-12-31] VITALS: BP 135/75
[2023-12-31] MEDS ORDERED: Pantoprazole Sodium 40 MG VIAL IV SCH (06:00)
[2023-12-31 06:48] LABS: BASO # 0.1 10*3/uL (0.0-0.1); BASO % 1.1 % (0.0-1.0); EOS # 0.3 10*3/uL (0.0-0.4); EOS % 3.2 % (1.0-4.0); HEMATOCRIT 44.3 % (37.0-47.0); LYMPH % 24.4 % (27.0-41.0); MEAN CORPUSCULAR HGB 30.2 pg (27.0-31.0); MEAN CORPUSCULAR HGB CONC 30.9 g/dl (33.0-37.0); MEAN PLATELET VOLUME 11.2 fl (9.6-12.3); MONO # 0.6 10*3/uL (0.1-1.0); MONO % 7.4 % (3.0-9.0); NEUT # 5.2 10*3/uL (2.3-7.9); NEUT % 63.5 % (47.0-73.0); RED BLOOD COUNT 4.53 10*6/uL (4.10-5.10); RED CELL DISTRI WIDTH 12.5 % (0-14.5); WHITE BLOOD COUNT 8.1 10*3/uL (4.8-10.8)
[2023-12-31 06:53] LABS: MEAN CELL VOLUME 97.8 fl (81.0-99.0); PLATELET COUNT AUTOMATED 295 10*3/uL (130-400)
[2023-12-31 07:01] LABS: POTASSIUM 5.1 mmol/L (3.4-5.1)
[2023-12-31 08:00] VITALS: BP 135/69
[2023-12-31] MEDS ORDERED: Metoclopramide Hydrochloride 10 MG/2 ML AMP IV SCH (10:00)
[2023-12-31 12:00] VITALS: BP 135/65
[2023-12-31] MEDS ORDERED: Technetium Tc 99M Sulfurcoll 1 KIT KIT SCH (14:10)
[2023-12-31 15:30] VITALS: BP 137/65
[2023-12-31 20:00] VITALS: BP 126/76
[2024-01-01] VITALS: BP 123/79
[2024-01-01 05:20] LABS: BUN 10 mg/dl (9-23); CHLORIDE 112 mmol/L (98-107)
[2024-01-01 05:58] LABS: BASO # 0.1 10*3/uL (0.0-0.1); BASO % 0.7 % (0.0-1.0); EOS # 0.3 10*3/uL (0.0-0.4); EOS % 3.5 % (1.0-4.0); HEMATOCRIT 37.6 % (37.0-47.0); LYMPH # 1.9 10*3/uL (1.3-4.4); LYMPH % 21.6 % (27.0-41.0); MEAN CELL VOLUME 95.9 fl (81.0-99.0); MEAN CORPUSCULAR HGB 30.6 pg (27.0-31.0); MEAN CORPUSCULAR HGB CONC 31.9 g/dl (33.0-37.0); MEAN PLATELET VOLUME 11.4 fl (9.6-12.3); MONO # 0.6 10*3/uL (0.1-1.0); MONO % 6.3 % (3.0-9.0); NEUT % 67.4 % (47.0-73.0); PLATELET COUNT AUTOMATED 251 10*3/uL (130-400); RED BLOOD COUNT 3.92 10*6/uL (4.10-5.10); RED CELL DISTRI WIDTH 12.4 % (0-14.5); WHITE BLOOD COUNT 8.9 10*3/uL (4.8-10.8)
[2024-01-01 06:44] LABS: ALKALINE PHOSPHATASE 47 U/L (46-116); BUN 9 mg/dl (9-23); CHLORIDE 112 mmol/L (98-107); SGPT/ALT < 7 U/L (5-49); TOTAL PROTEIN 5.5 gm/dL (6.0-8.0)
[2024-01-01] MEDS ORDERED: IOHEXOL 300 MG/ML 100 ML VIAL IV ONE (07:55)
[2024-01-01 08:00] VITALS: BP 114/55
[2024-01-01] MEDS ORDERED: IOHEXOL 300 MG/ML 100 ML VIAL ONE (10:03)
[2024-01-01 12:00] VITALS: BP 133/66
[2024-01-01] MEDS ORDERED: GABAPENTIN 100 MG CAP PO SCH (14:00)
[2024-01-01 16:00] VITALS: BP 137/70
[2024-01-01 20:00] VITALS: BP 116/54
[2024-01-02] VITALS: BP 121/55
[2024-01-02 06:43] LABS: BASO # 0.1 10*3/uL (0.0-0.1); BASO % 0.9 % (0.0-1.0); EOS # 0.2 10*3/uL (0.0-0.4); EOS % 3.8 % (1.0-4.0); HEMATOCRIT 41.1 % (37.0-47.0); LYMPH # 1.9 10*3/uL (1.3-4.4); LYMPH % 29.5 % (27.0-41.0); MEAN CORPUSCULAR HGB 30.2 pg (27.0-31.0); MEAN CORPUSCULAR HGB CONC 32.8 g/dl (33.0-37.0); MEAN PLATELET VOLUME 11.1 fl (9.6-12.3); MONO # 0.5 10*3/uL (0.1-1.0); MONO % 7.2 % (3.0-9.0); NEUT # 3.7 10*3/uL (2.3-7.9); NEUT % 58.3 % (47.0-73.0); PLATELET COUNT AUTOMATED 300 10*3/uL (130-400); RED BLOOD COUNT 4.47 10*6/uL (4.10-5.10); WHITE BLOOD COUNT 6.4 10*3/uL (4.8-10.8)
[2024-01-02 06:44] LABS: MEAN CELL VOLUME 91.9 fl (81.0-99.0)
[2024-01-02 06:48] LABS: BUN 8 mg/dl (9-23); CHLORIDE 108 mmol/L (98-107); POTASSIUM 4.5 mmol/L (3.4-5.1)
[2024-01-02 08:00] VITALS: BP 132/74
[2024-01-02 13:30] VITALS: BP 133/63
[2024-01-02 16:00] VITALS: BP 139/71
[2024-01-02] MEDS ORDERED: SUCRALFATE 1 GM TAB PO SCH (17:00)
[2024-01-02] MEDS ORDERED: CALCIUM CARBONATE/VITAMIN D3 500 MG/200 IU TABLET PO SCH (18:00)
[2024-01-02 20:00] VITALS: BP 140/55
[2024-01-02] MEDS ORDERED: Ziprasidone Hydrochloride 40 MG CAP PO SCH (22:00)
[2024-01-02] MEDS ORDERED: ZOLPIDEM TARTRATE 5 MG TAB PO SCH (22:00)
[2024-01-02] MEDS ORDERED: ZOLPIDEM TARTRATE 5 MG TAB PO PRN (22:00)
[2024-01-02] MEDS ORDERED: Mirtazapine 15 MG TAB PO SCH (22:00)
[2024-01-03] VITALS: BP 142/96
[2024-01-03 08:00] VITALS: BP 109/50
[2024-01-03] MEDS ORDERED: LISINOPRIL 10 MG TAB PO SCH (10:00)
[2024-01-03] MEDS ORDERED: REGLAN5 MG PO (11:31)
[2024-01-03] MEDS ORDERED: DIAZEPAM 5 MG TAB PO SCH (16:00)
== END 2024-01-03 12:00 | disposition home or self-care (01) | DRG 254 ==
LOC: ED 10:32 → 5E 13:13 → EDHOLD 13:13 → 5E 13:33
PROVIDERS: Internal Medicine; Internal Medicine Nephrology; Physician Assistant Medical; Surgery; ADMIT Internal Medicine; ATTEND Internal Medicine
DX: K31.84 Gastroparesis (principal); E83.52 Hypercalcemia; E44.0 Moderate protein-calorie malnutrition; N17.9 Acute kidney failure, unspecified; R65.10 Systemic inflammatory response syndrome (SIRS) of non-infectious origin without acute organ dysfunction; K52.9 Noninfective gastroenteritis and colitis, unspecified; E86.0 Dehydration; F41.9 Anxiety disorder, unspecified; J44.9 Chronic obstructive pulmonary disease, unspecified; F17.210 Nicotine dependence, cigarettes, uncomplicated; F32.A Depression, unspecified; K21.9 Gastro-esophageal reflux disease without esophagitis; K29.80 Duodenitis without bleeding; M79.605 Pain in left leg; M79.604 Pain in right leg; Z88.2 Allergy status to sulfonamides; Z88.8 Allergy status to other drugs, medicaments and biological substances; Z91.09 Other allergy status, other than to drugs and biological substances; Z79.899 Other long term (current) drug therapy; Z68.1 Body mass index [BMI] 19.9 or less, adult; Z79.01 Long term (current) use of anticoagulants; Z79.82 Long term (current) use of aspirin; Z90.710 Acquired absence of both cervix and uterus; Z90.49 Acquired absence of other specified parts of digestive tract; Z80.8 Family history of malignant neoplasm of other organs or systems; Z82.61 Family history of arthritis; Z82.49 Family history of ischemic heart disease and other diseases of the circulatory system

== ENCOUNTER → 2024-01-15 | Outpatient (CLI) | payer OTHER ==
[~2024-01-15] MED LIST changes: +REGLAN5 MG PO
[2024-01-15 14:25] LABS: BILIRUBIN Negative (Negative); BLOOD Negative (Negative); CLARITY Clear (Clear); COLOR Yellow (Yellow); GLUCOSE Negative (Negative); KETONE Negative (Negative); LEUKO ESTERASE Trace (Negative); NITRITE Negative (Negative); PH 6.5 (4.5-8.0); UROBILINOGEN 0.2 E.U./dl (0.0-1.0)
[2024-01-15 14:31] LABS: URINE CREATININE RANDOM 68.43 mg/dL
[2024-01-15 14:32] LABS: BACTERIA 1+; RBC 0-2 rbc/hpf (0-2)
== END | disposition home or self-care (01) ==
LOC: LAB 09:33
PROVIDERS: ATTEND Student in an Organized Health Care Education/Training Program
DX: R80.9 Proteinuria, unspecified (principal)

== ENCOUNTER → 2024-01-20 | Outpatient (CLI) | payer OTHER ==
[2024-01-20 12:42] LABS: BASO # 0.1 10*3/uL (0.0-0.1); BASO % 1.1 % (0.0-1.0); EOS # 0.2 10*3/uL (0.0-0.4); EOS % 2.7 % (1.0-4.0); HEMATOCRIT 43.2 % (37.0-47.0); LYMPH # 2.2 10*3/uL (1.3-4.4); LYMPH % 29.5 % (27.0-41.0); MEAN CELL VOLUME 94.3 fl (81.0-99.0); MEAN CORPUSCULAR HGB 29.9 pg (27.0-31.0); MEAN CORPUSCULAR HGB CONC 31.7 g/dl (33.0-37.0); MEAN PLATELET VOLUME 10.9 fl (9.6-12.3); MONO # 0.5 10*3/uL (0.1-1.0); MONO % 6.9 % (3.0-9.0); NEUT # 4.5 10*3/uL (2.3-7.9); NEUT % 59.5 % (47.0-73.0); PLATELET COUNT AUTOMATED 477 10*3/uL (130-400); RED BLOOD COUNT 4.58 10*6/uL (4.10-5.10); RED CELL DISTRI WIDTH 12.5 % (0-14.5); WHITE BLOOD COUNT 7.5 10*3/uL (4.8-10.8)
[2024-01-20 13:09] LABS: ALKALINE PHOSPHATASE 93 U/L (46-116); BUN 10 mg/dl (9-23); CHLORIDE 102 mmol/L (98-107); LIPASE 148 U/L (12-53); POTASSIUM 3.8 mmol/L (3.4-5.1); SGPT/ALT 20 U/L (5-49)
== END | disposition home or self-care (01) ==
LOC: LAB 12:14
PROVIDERS: ATTEND Internal Medicine
DX: K52.9 Noninfective gastroenteritis and colitis, unspecified (principal); K29.50 Unspecified chronic gastritis without bleeding

== ENCOUNTER 2024-03-04 19:01 | Emergency (ER) | payer OTHER ==
[~2024-03-04] VITALS: Ht 172.7 cm; Wt 72.6 kg
[2024-03-04 19:15] VITALS: BP 146/89
[2024-03-04] MEDS ORDERED: Ketorolac Tromethamine 15 MG/ML VIAL IM ONE (19:20)
== END 2024-03-04 21:57 | disposition home or self-care (01) ==
LOC: ED 19:01
DX: S93.402A Sprain of unspecified ligament of left ankle, initial encounter (principal); S70.02XA Contusion of left hip, initial encounter; M81.0 Age-related osteoporosis without current pathological fracture; F17.200 Nicotine dependence, unspecified, uncomplicated; Z88.2 Allergy status to sulfonamides; Z88.5 Allergy status to narcotic agent; Z79.899 Other long term (current) drug therapy; Z90.711 Acquired absence of uterus with remaining cervical stump; Z90.49 Acquired absence of other specified parts of digestive tract; Z87.442 Personal history of urinary calculi; W18.39XA Other fall on same level, initial encounter; Y93.89 Activity, other specified; Y92.098 Other place in other non-institutional residence as the place of occurrence of the external cause; Y99.8 Other external cause status

== ENCOUNTER 2024-10-29 09:02 | Inpatient (IN) | payer OTHER ==
[~2024-10-29] VITALS: Ht 160 cm; Wt 60.1 kg
[2024-10-29] MEDS ORDERED: Ondansetron Hydrochloride 4 MG/2 ML VIAL IV ONE (09:15)
[2024-10-29] MEDS ORDERED: MORPHINE Sulfate 2 MG/ML SYR IV ONE (09:15)
[2024-10-29] MEDS ORDERED: SODIUM CHLORIDE 0.9% 500 ML IV ONE ×2 (09:15→15:40)
[2024-10-29] MEDS ORDERED: IOHEXOL 300 MG/ML 100 ML VIAL IV ONE (09:20)
[2024-10-29 09:41] VITALS: BP 143/83
[2024-10-29 09:48] LABS: BASO # 0.1 10*3/uL (0.0-0.1); BASO % 0.8 % (0.0-1.0); EOS # 0.2 10*3/uL (0.0-0.4); EOS % 1.7 % (1.0-4.0); HEMATOCRIT 42.5 % (37.0-47.0); MEAN CELL VOLUME 88.7 fl (81.0-99.0); MEAN CORPUSCULAR HGB 29.6 pg (27.0-31.0); MEAN CORPUSCULAR HGB CONC 33.4 g/dl (33.0-37.0); MEAN PLATELET VOLUME 9.9 fl (9.6-12.3); MONO # 0.8 10*3/uL (0.1-1.0); MONO % 7.4 % (3.0-9.0); NEUT # 8.4 10*3/uL (2.3-7.9); NEUT % 73.1 % (47.0-73.0); PLATELET COUNT AUTOMATED 429 10*3/uL (130-400); RED BLOOD COUNT 4.79 10*6/uL (4.10-5.10); RED CELL DISTRI WIDTH 11.9 % (0-14.5); WHITE BLOOD COUNT 11.4 10*3/uL (4.8-10.8)
[2024-10-29 10:11] LABS: ALKALINE PHOSPHATASE 52 U/L (46-116); BUN 12 mg/dl (9-23); CHLORIDE 102 mmol/L (98-107); LIPASE 73 U/L (12-53); TOTAL PROTEIN 6.3 gm/dL (6.0-8.0)
[2024-10-29 10:12] LABS: SGPT/ALT < 7 U/L (5-49)
[2024-10-29] MEDS ORDERED: Pantoprazole Sodium 40 MG VIAL IV ONE (11:10)
[2024-10-29 12:02] LABS: BILIRUBIN Negative (Negative); BLOOD Negative (Negative); CLARITY Clear (Clear); COLOR Yellow (Yellow); GLUCOSE Negative (Negative); KETONE 1+ (Negative); LEUKO ESTERASE Negative (Negative); NITRITE Negative (Negative); SPECIFIC GRAVITY >= 1.030 (1.001-1.030); UROBILINOGEN 0.2 E.U./dl (0.0-1.0)
[2024-10-29 14:00] VITALS: BP 153/95
[2024-10-29] MEDS ORDERED: Ondansetron Hydrochloride 4 MG/2 ML VIAL IV PRN (15:45)
[2024-10-29] MEDS ORDERED: SODIUM CHLORIDE 0.9% 1,000 ML IV SCH (17:05)
[2024-10-29] MEDS ORDERED: HYDROmorphONE Hydrochloride 0.5 MG/0.5 ML SYRINGE IV ONE (17:05)
[2024-10-29 17:56] VITALS: BP 120/57
[2024-10-29] MEDS ORDERED: Pantoprazole Sodium 40 MG VIAL IV SCH (18:00)
[2024-10-29 21:17] VITALS: BP 126/64
[2024-10-29] MEDS ORDERED: METRONIDAZOLE 100 ML IV SCH (22:00)
[2024-10-29 22:50] VITALS: BP 131/62
[2024-10-29] MEDS ORDERED: Melatonin 5 MG TABLET PO ONE (23:20)
[2024-10-29] MEDS ORDERED: ACETAMINOPHEN 325 MG TAB PO ONE (23:20)
[2024-10-30] MEDS ORDERED: Ondansetron Hydrochloride 4 MG/2 ML VIAL IV PRN (00:07)
[2024-10-30 06:11] LABS: ALKALINE PHOSPHATASE 46 U/L (46-116); BUN 10 mg/dl (9-23); CHLORIDE 106 mmol/L (98-107); POTASSIUM 4.1 mmol/L (3.4-5.1); TOTAL PROTEIN 5.2 gm/dL (6.0-8.0)
[2024-10-30 06:13] LABS: SGPT/ALT < 7 U/L (5-49)
[2024-10-30 06:14] LABS: BASO # 0.1 10*3/uL (0.0-0.1); BASO % 0.7 % (0.0-1.0); EOS # 0.3 10*3/uL (0.0-0.4); EOS % 2.9 % (1.0-4.0); HEMATOCRIT 37.5 % (37.0-47.0); MEAN CELL VOLUME 90.8 fl (81.0-99.0); MEAN CORPUSCULAR HGB 29.5 pg (27.0-31.0); MEAN CORPUSCULAR HGB CONC 32.5 g/dl (33.0-37.0); MEAN PLATELET VOLUME 10.6 fl (9.6-12.3); MONO # 0.8 10*3/uL (0.1-1.0); MONO % 7.7 % (3.0-9.0); NEUT # 7.1 10*3/uL (2.3-7.9); NEUT % 66.7 % (47.0-73.0); PLATELET COUNT AUTOMATED 369 10*3/uL (130-400); RED BLOOD COUNT 4.13 10*6/uL (4.10-5.10); WHITE BLOOD COUNT 10.7 10*3/uL (4.8-10.8)
[2024-10-30] MEDS ORDERED: Technetium Tc 99M Sulfurcoll 1 KIT KIT SCH (07:10)
[2024-10-30] MEDS ORDERED: SUCRALFATE 1 GM TAB PO SCH (07:30)
[2024-10-30 08:00] VITALS: BP 134/60
[2024-10-30] MEDS ORDERED: Enoxaparin Sodium 40 MG/0.4 ML SYR SC SCH (10:00)
[2024-10-30 12:00] VITALS: BP 137/54
[2024-10-30] MEDS ORDERED: HYDROmorphONE Hydrochloride 0.5 MG/0.5 ML SYRINGE IV ONE (13:25)
[2024-10-30] MEDS ORDERED: Metoclopramide Hydrochloride 10 MG/2 ML VIAL IV SCH (16:00)
[2024-10-30 17:07] VITALS: BP 139/63
[2024-10-30 20:00] VITALS: BP 125/54
[2024-10-30] MEDS ORDERED: Ziprasidone Hydrochloride 40 MG CAP PO SCH (22:00)
[2024-10-31] VITALS: BP 102/56
[2024-10-31] MEDS ORDERED: IOHEXOL 350 MG/ML 100 ML VIAL IV ONE (07:25)
[2024-10-31] MEDS ORDERED: SODIUM CHLORIDE 0.9% 100 ML BAG IV ONE (07:25)
[2024-10-31 08:00] VITALS: BP 135/56
[2024-10-31 12:00] VITALS: BP 157/74
[2024-10-31 16:00] VITALS: BP 106/82
[2024-10-31 20:00] VITALS: BP 135/64
[2024-11-01] VITALS: BP 133/81
[2024-11-01 08:00] VITALS: BP 135/74; BP 151/63
[2024-11-01 10:33] LABS: BASO # 0.1 10*3/uL (0.0-0.1); BASO % 0.6 % (0.0-1.0); EOS # 0.2 10*3/uL (0.0-0.4); HEMATOCRIT 39.1 % (37.0-47.0); MEAN CELL VOLUME 90.1 fl (81.0-99.0); MEAN CORPUSCULAR HGB CONC 32.2 g/dl (33.0-37.0); MEAN PLATELET VOLUME 9.8 fl (9.6-12.3); MONO # 0.7 10*3/uL (0.1-1.0); MONO % 8.8 % (3.0-9.0); NEUT # 5.3 10*3/uL (2.3-7.9); NEUT % 66.8 % (47.0-73.0); PLATELET COUNT AUTOMATED 425 10*3/uL (130-400); RED BLOOD COUNT 4.34 10*6/uL (4.10-5.10); RED CELL DISTRI WIDTH 11.9 % (0-14.5)
[2024-11-01 10:51] LABS: BUN 7 mg/dl (9-23); CHLORIDE 105 mmol/L (98-107); POTASSIUM 3.5 mmol/L (3.4-5.1)
[2024-11-01 12:00] VITALS: BP 138/61
[2024-11-01] MEDS ORDERED: Ondansetron Hydrochloride 4 MG TAB SL PRN (13:55)
[2024-11-01] MEDS ORDERED: METRONIDAZOLE 500 MG TAB PO SCH (14:00)
[2024-11-01 16:00] VITALS: BP 110/72
[2024-11-01] MEDS ORDERED: Metoclopramide Hydrochloride 5 MG TAB PO SCH (16:30)
[2024-11-01] MEDS ORDERED: Pantoprazole Sodium 20 MG TAB PO SCH (18:00)
[2024-11-01 20:00] VITALS: BP 125/52
[2024-11-02] VITALS: BP 115/48
[2024-11-02] MEDS ORDERED: ALENDRONATE SOD70 M1 PO (02:30)
[2024-11-02 08:00] VITALS: BP 128/53
[2024-11-02 12:00] VITALS: BP 126/51
[2024-11-02 13:16] LABS: BASO # 0.1 10*3/uL (0.0-0.1); BASO % 0.6 % (0.0-1.0); EOS # 0.2 10*3/uL (0.0-0.4); EOS % 1.7 % (1.0-4.0); MEAN CELL VOLUME 90.7 fl (81.0-99.0); MEAN CORPUSCULAR HGB 29.1 pg (27.0-31.0); MEAN CORPUSCULAR HGB CONC 32.1 g/dl (33.0-37.0); MEAN PLATELET VOLUME 9.7 fl (9.6-12.3); MONO # 0.7 10*3/uL (0.1-1.0); MONO % 8.5 % (3.0-9.0); NEUT # 5.7 10*3/uL (2.3-7.9); NEUT % 66.2 % (47.0-73.0); PLATELET COUNT AUTOMATED 392 10*3/uL (130-400); RED BLOOD COUNT 4.19 10*6/uL (4.10-5.10); WHITE BLOOD COUNT 8.6 10*3/uL (4.8-10.8)
[2024-11-02 13:34] LABS: BUN 6 mg/dl (9-23); CHLORIDE 106 mmol/L (98-107); POTASSIUM 3.9 mmol/L (3.4-5.1)
[2024-11-02 16:00] VITALS: BP 126/46
[2024-11-02] MEDS ORDERED: CARAFATE1 GM PO (16:56)
[2024-11-02] MEDS ORDERED: PROTONIX IV40 MG IV (16:56)
[2024-11-02] MEDS ORDERED: REGLAN10 M1 PO (16:56)
[2024-11-02 20:00] VITALS: BP 145/83
[2024-11-03] VITALS: BP 132/89
[2024-11-03 08:00] VITALS: BP 146/60
== END 2024-11-03 10:34 | disposition home or self-care (01) | DRG 241 ==
LOC: ED 09:02 → EDHOLD 11:19 → 4E 20:39
PROVIDERS: Internal Medicine; ADMIT Internal Medicine; ATTEND Internal Medicine
DX: K29.70 Gastritis, unspecified, without bleeding (principal); K31.84 Gastroparesis; K52.9 Noninfective gastroenteritis and colitis, unspecified; F32.9 Major depressive disorder, single episode, unspecified; K21.9 Gastro-esophageal reflux disease without esophagitis; F41.9 Anxiety disorder, unspecified; Z90.49 Acquired absence of other specified parts of digestive tract; Z82.49 Family history of ischemic heart disease and other diseases of the circulatory system; Z82.61 Family history of arthritis; Z88.2 Allergy status to sulfonamides; Z88.8 Allergy status to other drugs, medicaments and biological substances; I25.2 Old myocardial infarction; Z90.710 Acquired absence of both cervix and uterus